=== PATIENT | female | born 1995 | race Caucasian/White ===

== ENCOUNTER 2017-11-18 09:56 | Emergency (ER) | payer SELFPAY ==
[~2017-11-18] VITALS: Ht 162.6 cm; Wt 100.0 kg
[2017-11-18 10:00] VITALS: BP 143/68; PULSE 80; RESP 15; TEMP 98.7; O2SAT 100
--- NOTE | 2017-11-18 10:52 | PD ---
HPI Chief Complaint: Musculoskeletal Complaint Time Seen by Provider: 10:41 Travel History International Travel<30 days: No Contact w/Intl Traveler<30days: No Traveled to known affect area: No History of Present Illness HPI 22-year-old female presents to the emergency department with complaint of right lateral rib cage pain 10 months that comes and goes and woke up with it worse this morning. Denies injury. Describes it as a sharp stabbing pain. This morning when she woke up it was a 9/10 and has decreased now to a 2/10. Worse with stretching out her right arm. Better at rest. Has taken ibuprofen for symptom management. Denies fever, vomiting. Denies chest pain, shortness of breath, abdominal pain. Denies history of kidney stones. Denies dysuria, hematuria. Primary care provider is in [place]. Denies significant past medical history. No known allergies. Has no other medical complaints. No other modifying factors or associated signs and symptoms. PFSH Past Medical History Medical History: Denies Significant Hx ?: Not Past Surgical History Surgical History: No Previous Surgery Social History Alcohol Use: No Tobacco Use: Yes Substance Use: Yes (marijuana) Allergies-Medications (Allergen,Severity, Reaction): Coded Allergies: No Known Allergies (Unverified , 11/18/17) Review of Systems Except as stated in HPI: all other systems reviewed are Neg Physical Exam Narrative GENERAL: Well-nourished, well-developed female patient, in no acute distress SKIN: Warm and dry. HEAD: Atraumatic. Normocephalic. EYES: Pupils equal and round. No scleral icterus. No injection or drainage. ENT: Mucosa pink and moist. NECK: Trachea midline. CHEST: Right lateral lower rib cage with reproducible tenderness; no crepitance or deformity; area without erythema, ecchymosis. No retractions or use of accessory muscles. CARDIOVASCULAR: Regular rate and rhythm. No murmur appreciated. RESPIRATORY: No accessory muscle use. Clear to auscultation. Breath sounds equal bilaterally. No retractions or tachypnea. GASTROINTESTINAL: Abdomen soft, non-tender, nondistended. Hepatic and splenic margins not palpable. Bowel sounds are active 4 quadrants. MUSCULOSKELETAL: No obvious deformities. No clubbing. No cyanosis. No edema. BACK: No CVA tenderness. NEUROLOGICAL: Awake and alert. Oriented 3. No obvious cranial nerve deficits. Motor grossly within normal limits. Normal speech. Moves all extremities. 5/5 strength to all extremities. PSYCHIATRIC: Appropriate mood and affect; insight and judgment normal. Data Data Last Documented VS Vital Signs Date Time Temp Pulse Resp B/P (MAP) Pulse Ox O2 Delivery O2 Flow Rate FiO2 11/18/17 10:00 98.7 80 15 143/68 (93) 100 Orders Orders Ribs, Uni (W/Exp Cxr-Min 3vw) (11/18/17 10:52) Methocarbamol (Robaxin) (11/18/17 11:00) [facility] Medical Decision Making Medical Screen Exam Complete: Yes Emergency Medical Condition: Yes Medical Record Reviewed: Yes Differential Diagnosis Pleurisy, costochondritis, muscle strain, muscle spasm, rib fracture, rib contusion, rib pain Narrative Course 22-year-old female with reproducible tenderness to the right lateral rib cage. Denies injury. Patient took ibuprofen prior to arrival. Robaxin ordered. Right rib with expiratory chest x-ray ordered. 1135: Right rib with expiratory chest x-ray concluded: Negative for fracture. I do not etiology for the pain. Discussed x-ray findings with the patient. Robaxin and ibuprofen prescribed for home. Instructed patient to follow up with primary care provider. Patient verbalizes understanding and agreement with treatment plan. Patient is medically cleared and stable for discharge. Discussed reasons to return to the emergency department. Patient agrees with treatment plan. The patients vital signs are stable and the patient is stable for outpatient follow-up and treatment. Patient discharged home, stable and in no acute distress. Diagnosis Primary Impression: Rib pain on right side Referrals: [facility] Primary Care Physician Patient Instructions: General Instructions Additional Instructions: Ibuprofen or Tylenol as directed and as needed to reduce pain Robaxin as prescribed and as needed to reduce muscle spasms Heating pad and/or ice to affected area to reduce pain Avoid aggravating activities; increase activity as tolerated Gentle stretching to the affected muscle may be helpful Follow-up with a primary care provider Return to the emergency department immediately with worsening of symptoms Med/Other Pt SpecificInfo: Prescription(s) given Scripts Ibuprofen (Ibuprofen) 800 Mg Tab 800 MG PO Q6HR Y for PAIN, #30 TAB 0 Refills Prov: Noy Jackson 11/18/17 Methocarbamol (Robaxin) 500 Mg Tab 500 MG PO QID Y for MUSCLE SPASM, #30 TAB 0 Refills Prov: Noy Jackson 11/18/17 Disposition: 01 DISCHARGE HOME Condition: Stable Noy Jackson Nov 18, 2017 10:52
[2017-11-18] MEDS ORDERED: METHOCARBAMOL 500 MG TAB PO ONE (11:00)
--- NOTE | 2017-11-18 11:31 | RADRPT ---
EXAM DATE/TIME: 11/18/2017 11:15 [place] COMPARISON: No previous studies available for comparison. INDICATIONS : Right lower rib pain with no known trauma. MEDICAL HISTORY : None. SURGICAL HISTORY : None. ENCOUNTER: Initial ACUITY: 1 month PAIN SCORE: 8/10 LOCATION: Right lower anrerior FINDINGS: Multiple views of the right ribs were performed. There is no evidence of displaced fracture. No graham tructive lesions or areas of periosteal thickening are seen. Expiratory view of the chest is negativ e for pneumothorax. The mediastinal structures are midline. CONCLUSION: Negative for fracture. I do not etiology for the pain Ruel Ramos MD FACR on November 18, 2017 at 11:29 Board Certified Radiologist. This report was verified electronically.
[2017-11-18] MEDS ORDERED: ROBA500T PO (11:36)
[2017-11-18] MEDS ORDERED: IBUP1TAB7 PO (11:36)
[2017-11-18 11:51] VITALS: BP 119/74
== END 2017-11-18 11:53 | disposition home or self-care (01) ==
LOC: NEPD 09:56
DX: R07.81 Pleurodynia (principal); F12.90 Cannabis use, unspecified, uncomplicated; Z72.0 Tobacco use
CPT/HCPCS: 71101; 99283